=== PATIENT | female | born 1995 | race Asian ===

== ENCOUNTER 2021-10-11 18:14 | Inpatient (IN) | payer BC ==
[~2021-10-11 18:14] MED LIST: Lidocaine 2% PF 5 ML VIAL ONE
[2021-10-11 18:55] VITALS: BMI 26.6
[2021-10-11] MEDS ORDERED: Ibuprofen 800 MG TAB PO PRN (19:25)
[2021-10-11] MEDS ORDERED: Diphenoxylate HCl/Atropine Tablet PO PRN (19:25)
[2021-10-11] MEDS ORDERED: Misoprostol 200 MCG TAB PR PRN (19:25)
[2021-10-11] MEDS ORDERED: Methylergonovine 0.2 MG/ML VIAL IM PRN (19:25)
[2021-10-11] MEDS ORDERED: hydrALAZINE 20 MG/ML VIAL SLOW IVP PRN (19:25)
[2021-10-11] MEDS ORDERED: Acetaminophen 500 MG TAB PO PRN (19:25)
[2021-10-11] MEDS ORDERED: Butorphanol Tartrate 1 MG/ML VIAL SLOW IVP PRN (19:25)
[2021-10-11] MEDS ORDERED: Lidocaine 1% (PF) 30 ML VIAL SC PRN (19:25)
[2021-10-11] MEDS ORDERED: Ondansetron PF 4 MG/2 ML Vial IVP PRN (19:25)
[2021-10-11] MEDS ORDERED: Carboprost 250 MCG/ML AMP IM PRN (19:25)
[2021-10-11] MEDS ORDERED: Promethazine HCl 25 MG/ML VIAL IM PRN (19:25)
[2021-10-11 20:00] LABS: Hemoglobin 11.3 g/dL (12.0-15.5); Mean Corpuscular HGB CONC 33.2 g/dL (32.0-36.0); Mean Corpuscular Hemoglobin 30.7 pg (27.0-33.0); Mean Corpuscular Volume 92.4 fl (81.6-98.3); Mean Platelet Volume 9.9 fl (7.4-10.4); Platelet Count 177 10x3/uL (150-450); RBC Distribution Width 14.1 % (11.5-14.5); Red Blood Cell (RBC) Count 3.68 10x6/uL (3.90-5.03); White Blood Cell (WBC) Count 11.9 10x3/uL (3.5-10.5)
[2021-10-11 20:31] LABS: Hep B Surf Ag Non-Reactive S/CO (NonReactive); Syphilis Antibody Nonreactive (Nonreactive)
[2021-10-11 20:32] LABS: HBSAg Index 0.17 S/CO (0-0.99)
[2021-10-11 20:35] LABS: SARS-CoV-2 NAA Rapid Test Not Detected (NotDetected)
[2021-10-11] MEDS ORDERED: Fentanyl 2 mcg/Bup 0.1% Cadd 100 ML ONE (20:56)
[2021-10-12] MEDS: Lactated Ringer's 1,000 ML IV SCH (03:42)
[2021-10-12] MEDS ORDERED: Lidocaine 1% (PF) 30 ML VIAL ONE (03:50)
[2021-10-12] MEDS ORDERED: Naloxone HCl 0.4 mg/ml Vial IVP PRN ×2 (05:14)
[2021-10-12] MEDS ORDERED: Lactated Ringer's 500 ML IV PRN (05:14)
[2021-10-12] MEDS ORDERED: ePHEDrine Sulfate 50 MG/10 ML VIAL SLOW IVP PRN (05:14)
[2021-10-12] MEDS ORDERED: Ondansetron PF 4 MG/2 ML Vial IVP PRN ×2 (05:14→12:29)
[2021-10-12] MEDS ORDERED: Acetaminophen 325 MG TAB PO PRN (05:14)
[2021-10-12] MEDS ORDERED: Hydrocerin (Eucerin) Cream 120 gm Jar TOP PRN (05:14)
[2021-10-12] MEDS ORDERED: Promethazine HCl 25 MG/ML VIAL IM PRN (05:14)
[2021-10-12] MEDS ORDERED: diphenhydrAMINE 50 MG/ML VIAL IVP PRN (05:14)
[2021-10-12] MEDS ORDERED: Communication Order-Pharmacy FS SCH (05:15)
[2021-10-12] MEDS ORDERED: Fentanyl 2 mcg/Bupivacaine 0.1% Cassette 100 ML EPIDURAL SCH (05:15)
[2021-10-12] MEDS: NS w/ Oxytocin 30 units 500 ML IV SCH ×2 (06:01→09:46)
[2021-10-12] MEDS ORDERED: hydrALAZINE 20 MG/ML VIAL SLOW IVP PRN (12:29)
[2021-10-12] MEDS ORDERED: Misoprostol 200 MCG TAB VAG PRN (12:29)
[2021-10-12] MEDS ORDERED: Methylergonovine 0.2 MG/ML VIAL IM PRN (12:29)
[2021-10-12] MEDS ORDERED: Boostrix 0.5 ML (Tdap) VIAL IM ONE (12:29)
[2021-10-12] MEDS ORDERED: NS w/ Oxytocin 30 units 500 ML IV SCH (12:29)
[2021-10-12] MEDS ORDERED: HYDROcodone/Acetaminophen 5/325 mg Tablet PO PRN ×2 (12:29)
[2021-10-12] MEDS ORDERED: Benzocaine-Menthol 82.5 ML CAN TOP PRN (12:29)
[2021-10-12] MEDS ORDERED: Milk Of Magnesia 30 ML UDCUP PO PRN (12:29)
[2021-10-12] MEDS ORDERED: Bisacodyl 10 MG SUPP PR PRN (12:29)
[2021-10-12] MEDS: Ibuprofen 800 MG TAB PO SCH ×2 (14:35→21:57)
[2021-10-12] MEDS: Ferrous Sulfate 325 MG TAB PO SCH (17:57)
[2021-10-12] MEDS: Docusate Calcium (SURFAK) 240 MG CAP PO SCH (21:57)
[2021-10-13] MEDS: Ibuprofen 800 MG TAB PO SCH ×3 (04:55→22:00)
[2021-10-13] MEDS: Lactated Ringer's 1,000 ML IV SCH ×2 (05:42→05:43)
[2021-10-13] MEDS: Docusate Calcium (SURFAK) 240 MG CAP PO SCH ×2 (08:29→22:00)
[2021-10-13] MEDS: Ferrous Sulfate 325 MG TAB PO SCH ×2 (08:31→13:39)
[2021-10-13 09:07] VITALS: TEMP 97.9
[2021-10-14] MEDS: Ibuprofen 800 MG TAB PO SCH (05:15)
[2021-10-14] MEDS: Ferrous Sulfate 325 MG TAB PO SCH (07:20)
[2021-10-14 08:29] VITALS: BP 109/56
[2021-10-14] MEDS: Docusate Calcium (SURFAK) 240 MG CAP PO SCH (09:09)
== END 2021-10-14 11:50 | disposition home or self-care (01) | DRG 807 ==
LOC: CSHLD/OP 18:14 → CSHLD 18:15 → CSHPP 10-12 12:10
PROVIDERS: ADMIT Obstetrics & Gynecology; ATTEND Obstetrics & Gynecology
PROC: 10H07YZ Insertion of Other Device into Products of Conception, Via Natural or Artificial Opening (ICD-10-PCS; 2021-10-11)
PROC: 4A1HXCZ Monitoring of Products of Conception, Cardiac Rate, External Approach (ICD-10-PCS; 2021-10-11)
PROC: 4A1HXFZ Monitoring of Products of Conception, Cardiac Rhythm, External Approach (ICD-10-PCS; 2021-10-11)
PROC: 10907ZC Drainage of Amniotic Fluid, Therapeutic from Products of Conception, Via Natural or Artificial Opening (ICD-10-PCS; 2021-10-11)
PROC: 10E0XZZ Delivery of Products of Conception, External Approach (ICD-10-PCS; principal; 2021-10-12)
PROC: 0KQM0ZZ Repair Perineum Muscle, Open Approach (ICD-10-PCS; 2021-10-12)
DX: O76 Abnormality in fetal heart rate and rhythm complicating labor and delivery (principal); Z37.0 Single live birth; Z3A.39 39 weeks gestation of pregnancy; Z20.822 Contact with and (suspected) exposure to COVID-19; O70.1 Second degree perineal laceration during delivery
CPT/HCPCS: 36415; 51702; 85027; 86780; 86850; 86900; 86901; 87340; 99285; J2001; J2590; J7120; U0002

== ENCOUNTER 2024-07-08 07:48 | Inpatient (IN) | payer BC ==
[2024-07-08] MEDS ORDERED: Carboprost 250 MCG/ML AMP IM PRN (08:29)
[2024-07-08] MEDS ORDERED: hydrALAZINE 20 MG/ML VIAL SLOW IVP PRN ×3 (08:29→13:29)
[2024-07-08] MEDS ORDERED: Promethazine HCl 25 MG/ML VIAL IM PRN ×2 (08:29→13:29)
[2024-07-08] MEDS ORDERED: Ondansetron PF 4 MG/2 ML Vial IVP PRN ×2 (08:29→13:29)
[2024-07-08] MEDS ORDERED: Methylergonovine 0.2 MG/ML VIAL IM PRN (08:29)
[2024-07-08] MEDS ORDERED: Misoprostol 200 MCG TAB PR PRN (08:29)
[2024-07-08] MEDS ORDERED: Diphenoxylate HCl/Atropine Tablet PO PRN (08:29)
[2024-07-08] MEDS ORDERED: Oxytocin 30 units/NS 500 ML 500 ML IV SCH (08:30)
[2024-07-08] MEDS ORDERED: Lactated Ringer's 1,000 ML IV SCH (08:30)
[2024-07-08 08:50] LABS: Hematocrit 38.2 % (34.9-44.5); Hemoglobin 12.8 g/dL (12.0-15.5); Mean Corpuscular HGB CONC 33.5 g/dL (32.0-36.0); Mean Corpuscular Hemoglobin 30.3 pg (27.0-33.0); Mean Corpuscular Volume 90.3 fL (81.6-98.3); Mean Platelet Volume 9.7 fL (7.4-10.4); Platelet Count 198 10x3/uL (150-450); RBC Distribution Width 13.9 % (11.5-14.5); Red Blood Cell (RBC) Count 4.23 10x6/uL (3.90-5.03); White Blood Cell (WBC) Count 12.4 10x3/uL (3.5-10.5)
[2024-07-08 09:25] LABS: HBsAg Index 0.23 S/CO (0-0.99); Hep B Surf Ag - L&D Non-Reactive S/CO (NonReactive); Syphilis Antibody Nonreactive (Nonreactive)
[2024-07-08] MEDS ORDERED: Bisacodyl 10 MG SUPP PR PRN (13:29)
[2024-07-08] MEDS ORDERED: HYDROcodone/Acetaminophen 5/325 mg Tablet PO PRN ×2 (13:29)
[2024-07-08] MEDS ORDERED: Preparation H Ointment 28 GM TUBE PR PRN (13:29)
[2024-07-08] MEDS ORDERED: Milk Of Magnesia 30 ML UDCUP PO PRN (13:29)
[2024-07-08] MEDS ORDERED: Boostrix 0.5 ML (Tdap) VIAL (>/=7 yrs of age) IM ONE (13:29)
[2024-07-08] MEDS ORDERED: diphenhydrAMINE 25 MG CAP PO PRN (13:29)
[2024-07-08] MEDS ORDERED: Lanolin Ointment 7 GM TUBE TOP PRN (13:29)
[2024-07-08] MEDS: Benzocaine-Menthol 82.5 ML CAN TOP PRN (14:19)
[2024-07-08] MEDS: Ibuprofen 800 MG TAB PO SCH (14:20)
[2024-07-08] MEDS: Docusate 100 MG CAP PO SCH (22:00)
[2024-07-09] MEDS: fentaNYL/Ropivacaine Epidural 0 ML ONE (07:23)
[2024-07-09] MEDS: Lidocaine 1% (PF) 30 ML VIAL ONE (07:24)
[2024-07-09] MEDS: Ferrous Sulfate 325 MG TAB PO SCH (07:24)
[2024-07-09] MEDS: Prenatal Vitamin 1 TAB PO SCH (08:48)
[2024-07-10 08:02] VITALS: BP 101/56; TEMP 98
== END 2024-07-10 14:50 | disposition home or self-care (01) | DRG 807 ==
LOC: CSHLD/OP 07:48 → CSHLD 09:31 → CSHPP 12:12
PROVIDERS: ADMIT Student in an Organized Health Care Education/Training Program; ATTEND Student in an Organized Health Care Education/Training Program
PROC: 10E0XZZ Delivery of Products of Conception, External Approach (ICD-10-PCS; principal; 2024-07-08)
PROC: 0HQ9XZZ Repair Perineum Skin, External Approach (ICD-10-PCS; 2024-07-08)
DX: O48.0 Post-term pregnancy (principal); Z37.0 Single live birth; Z3A.41 41 weeks gestation of pregnancy; O70.0 First degree perineal laceration during delivery; O69.89X0 Labor and delivery complicated by other cord complications, not applicable or unspecified
CPT/HCPCS: 36415; 85027; 86780; 86850; 86900; 86901; 87340; 99285; J2001; J2590